=== PATIENT | male | born 1990 | race Caucasian/White ===

== ENCOUNTER 2018-04-28 06:14 | Emergency (ER) | payer OTHER ==
[~2018-04-28] VITALS: Ht 172.7 cm; Wt 65.8 kg
[~2018-04-28 06:14] MED LIST: APAP500 PO; BACTRIM DS TAB1 EACH PO; FLEXERIL PO; IBUPROFEN 600600 M1 PO; NAPROSYN500 MG PO; NOHOMEMEDICATIONS; PHENERGAN 25 MG25 M1 PO; PROMETHAZINE-C120 ML PO; ZPAK PO
[2018-04-28] MEDS ORDERED: NORFLEX100 MG PO (06:44)
[2018-04-28 06:50] VITALS: BP 116/77
== END 2018-04-28 06:51 | disposition home or self-care (01) ==
LOC: ER 06:14
DX: S29.012A Strain of muscle and tendon of back wall of thorax, initial encounter (principal); X58.XXXA Exposure to other specified factors, initial encounter; Y93.89 Activity, other specified; Y92.89 Other specified places as the place of occurrence of the external cause; Y99.8 Other external cause status

== ENCOUNTER 2018-07-15 12:07 | Emergency (ER) | payer OTHER ==
[~2018-07-15] VITALS: Ht 172.7 cm; Wt 68.0 kg
[~2018-07-15 12:07] MED LIST changes: +NORFLEX100 MG PO
[2018-07-15 12:32] LABS: BASOPHILS 0.4 % (0.0-2.0); EOSINOPHILS 2.8 % (0.0-3.0); HEMATOCRIT 45.8 % (42.0-52.0); HEMOGLOBIN 15.9 gm/dL (14.0-18.0); LYMPHOCYTES 34.1 % (24.0-44.0); MCH 30.2 pg (26.0-34.0); MCHC 34.7 g/dL (28.0-37.0); MCV 86.9 fL (80.0-100.0); MONOCYTES 8.2 % (1.0-8.0); PLATELET COUNT 142 thou/uL (150-400); POLYS 54.5 % (36.0-66.0); RBC 5.26 mil/uL (4.50-6.00); RDW 13.6 % (10.5-14.5); WBC 5.5 thou/uL (4.0-11.0)
[2018-07-15 12:38] LABS: CALCIUM 9.7 mg/dL (8.5-10.1); CREATININE 0.9 mg/dL (0.7-1.3); POTASSIUM 3.8 mmol/L (3.5-5.1)
[2018-07-15 13:37] VITALS: BP 127/77
--- NOTE | 2018-07-16 08:35 | EKG ---
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 : 1990 Requested By: Elliot Westbrook Order Number: [id number] MD: Raphael Fonseca Measurements Intervals [place] Rate: 89 P: 27 [place]: 168 QRS: 60 QRSD: 101 T: 19 QT: 356 QTc: 434 Interpretive Statements Sinus rhythm ST elev, probable normal early repol pattern No previous ECG available for comparison Electronically Signed On 07-16-2018 8:35:42 [employer]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
== END 2018-07-15 13:39 | disposition home or self-care (01) ==
LOC: ER 12:07
PROVIDERS: Emergency Medicine
DX: M54.2 Cervicalgia (principal); R55 Syncope and collapse; F41.0 Panic disorder [episodic paroxysmal anxiety]; Z91.013 Allergy to seafood